=== PATIENT | male | born 1980 | race Native Hawaiian/Other Pacific Islander ===

== ENCOUNTER 2022-02-24 05:42 | Day surgery (SDC) | payer OTHER ==
[2022-02-20 16:09] VITALS: BMI 30.7
[~2022-02-24 05:42] MED LIST: ceFAZolin SODIUM 1 GM VIAL IVPB ONE
[2022-02-24] MEDS ORDERED: ROPIVACAINE HCL 0.5% 30ML VIAL ONE (14:16)
[2022-02-24] MEDS ORDERED: DEXAMETHASONE SOD PHOSPHATE 10 MG/1 ML VIAL ONE (14:16)
[2022-02-24] MEDS ORDERED: MIDAZOLAM HCL 2 MG/2 ML SINGLE DOSE VIAL ONE (14:17)
[2022-02-24] MEDS ORDERED: FENTANYL CITRATE/PF 50 MCG/ML VIAL ONE (14:34)
[2022-02-24] MEDS ORDERED: PROPOFOL 40 ML ONE (14:34)
[2022-02-24] MEDS ORDERED: ONDANSETRON 4 MG/2 ML VIAL ONE (14:49)
[2022-02-24] MEDS ORDERED: ceFAZolin SODIUM 1 GM VIAL IVPB ONE (14:50)
[2022-02-24] MEDS ORDERED: ONDANSETRON 4 MG/2 ML VIAL IVPUSH PRN (16:05)
[2022-02-24] MEDS ORDERED: oxyCODONE HCL 5 MG TABLET PO PRN (16:05)
[2022-02-24 17:15] VITALS: RESP 18
[2022-02-24 18:02] VITALS: BP 129/89; PULSE 79; TEMP 97.7
== END 2022-02-24 18:00 | disposition home or self-care (01) ==
LOC: JASU-SURG 05:42
PROVIDERS: ATTEND Orthopaedic Surgery
PROC: 0RBK4ZZ Excision of Left Shoulder Joint, Percutaneous Endoscopic Approach (ICD-10-PCS; principal; 2022-02-24 13:30)
PROC: 0PBB4ZZ Excision of Left Clavicle, Percutaneous Endoscopic Approach (ICD-10-PCS; 2022-02-24 13:30)
DX: M75.42 Impingement syndrome of left shoulder (principal); M19.012 Primary osteoarthritis, left shoulder
CPT/HCPCS: 93005; 93010; 94760; C1713; J1100

== ENCOUNTER 2023-12-17 14:46 | Inpatient (IN) | payer BC, OTHER ==
[2023-12-17 15:06] VITALS: BMI 29.7
[2023-12-17 15:51] LABS: HEMATOCRIT 24.7 % (35.4-49); HEMOGLOBIN 8.2 GM/dL (11.7-16.9); MCH 30.5 pg (25.7-33.7); MEAN CELL VOLUME 92.3 fl (80-96); MEAN PLT VOLUME 7.1 fl (7.5-11.1); PLATELET COUNT 314 10^3/uL (134-434); RBC 2.68 M/mm3 (4.00-5.60); RDW 12.9 % (11.9-15.9); WHITE BLOOD COUNT 13.8 K/mm3 (4.0-10.0)
[2023-12-17 16:11] LABS: INR 0.97 (0.83-1.09); PROTHROMBIN TIME (PATIENT) 11.2 SEC (9.7-13.0)
[2023-12-17 16:14] LABS: ACTIVATED PTT 26.6 SECONDS (25.2-36.5)
[2023-12-17 16:15] LABS: ALBUMIN 3.6 g/dl (3.4-5.0); BLOOD UREA NITROGEN 10.6 mg/dL (7-18)
[2023-12-17 16:16] LABS: BILIRUBIN,DIRECT 0.1 mg/dL (0.0-0.2)
[2023-12-17 16:17] LABS: IRON SERUM 47 ug/dL (50-175); TOTAL IRON BINDING CAPACITY 242 ug/dL (250-450)
[2023-12-17 16:18] LABS: CREATININE 0.9 mg/dL (0.55-1.3)
[2023-12-17 16:20] LABS: BILIRUBIN,TOTAL 0.4 mg/dL (0.2-1); TOT PROT 5.7 g/dl (6.4-8.2)
[2023-12-17 16:26] LABS: ANISOCYTOSIS 0; MACROCYTOSIS 0
[2023-12-17 16:29] LABS: PH,URINE 6.5 (5.0-8.0); URINE APPEARANCE CLEAR; URINE BILIRUBIN NEGATIVE (NEGATIVE); URINE COLOR YELLOW; URINE GLUCOSE (UA) NEGATIVE (NEGATIVE); URINE KETONE TRACE (NEGATIVE); URINE LEUK ESTERASE NEGATIVE (NEGATIVE); URINE NITRITE NEGATIVE (NEGATIVE); URINE PROTEIN NEGATIVE (NEGATIVE); URINE UROBILINOGEN 0.2 mg/dL (0.2-1.0)
[2023-12-17] MEDS: PANTOPRAZOLE SODIUM 160 MG in SODIUM CHLORIDE 250 ML IVPB SCH (19:57)
[2023-12-17] MEDS: ACETAMINOPHEN 1000 MG/100 ML BAG IVPB ONE (21:35)
[2023-12-18 04:50] LABS: HEMOGLOBIN 8.3 GM/dL (11.7-16.9); MCH 30.4 pg (25.7-33.7); MCHC 34.5 g/dl (32.0-35.9); MEAN CELL VOLUME 88.1 fl (80-96); MEAN PLT VOLUME 6.9 fl (7.5-11.1); PLATELET COUNT 239 10^3/uL (134-434); RBC 2.73 M/mm3 (4.00-5.60); RDW 16.1 % (11.9-15.9); WHITE BLOOD COUNT 6.2 K/mm3 (4.0-10.0)
[2023-12-18 10:10] LABS: BASO % 0.4 % (0-2.0); EOS % 1.9 % (0-4.5); HEMATOCRIT 26.1 % (35.4-49); HEMOGLOBIN 8.8 GM/dL (11.7-16.9); LYMPH % 27.2 % (8-40); MCH 30.1 pg (25.7-33.7); MCHC 33.8 g/dl (32.0-35.9); MEAN CELL VOLUME 89.1 fl (80-96); MONO % 6.5 % (3.8-10.2); PLATELET COUNT 257 10^3/uL (134-434); RBC 2.93 M/mm3 (4.00-5.60); RDW 16.7 % (11.9-15.9); WHITE BLOOD COUNT 6.2 K/mm3 (4.0-10.0)
[2023-12-18 10:17] LABS: INR 1.01 (0.83-1.09); PROTHROMBIN TIME (PATIENT) 11.4 SEC (9.7-13.0)
[2023-12-18 11:11] LABS: POTASSIUM 3.7 mmol/L (3.5-5.1)
[2023-12-18 11:13] LABS: ALBUMIN 3.1 g/dl (3.4-5.0); CALCIUM 8.1 mg/dL (8.5-10.1)
[2023-12-18 11:14] LABS: BLOOD UREA NITROGEN 9.8 mg/dL (7-18)
[2023-12-18 11:17] LABS: CREATININE 0.9 mg/dL (0.55-1.3); PHOSPHOROUS 3.2 mg/dL (2.5-4.9)
[2023-12-18 11:18] LABS: BILIRUBIN,TOTAL 0.6 mg/dL (0.2-1)
[2023-12-18] MEDS: D5-1/2NS+20 MEQ KCL - 20 MEQ/1,000 ML INFUS.BAG IV SCH (15:09)
[2023-12-18 16:31] LABS: HEMATOCRIT 26.9 % (35.4-49); HEMOGLOBIN 9.2 GM/dL (11.7-16.9); MCH 30.2 pg (25.7-33.7); MCHC 34.1 g/dl (32.0-35.9); MEAN CELL VOLUME 88.5 fl (80-96); PLATELET COUNT 277 10^3/uL (134-434); RBC 3.04 M/mm3 (4.00-5.60); WHITE BLOOD COUNT 6.6 K/mm3 (4.0-10.0)
[2023-12-18] MEDS: PANTOPRAZOLE 40 MG TABLET PO SCH (21:32)
[2023-12-19 05:45] LABS: BASO % 0.5 % (0-2.0); EOS % 2.1 % (0-4.5); HEMATOCRIT 23.3 % (35.4-49); HEMOGLOBIN 7.9 GM/dL (11.7-16.9); LYMPH % 19.2 % (8-40); MCH 30.4 pg (25.7-33.7); MEAN CELL VOLUME 89.3 fl (80-96); MEAN PLT VOLUME 7.2 fl (7.5-11.1); MONO % 6.3 % (3.8-10.2); NEUT % 71.9 % (42.8-82.8); PLATELET COUNT 291 10^3/uL (134-434); RBC 2.61 M/mm3 (4.00-5.60); RDW 16.4 % (11.9-15.9); WHITE BLOOD COUNT 8.1 K/mm3 (4.0-10.0)
[2023-12-19 05:53] LABS: POTASSIUM 4.3 mmol/L (3.5-5.1)
[2023-12-19 05:55] LABS: BLOOD UREA NITROGEN 16.7 mg/dL (7-18); CALCIUM 7.8 mg/dL (8.5-10.1)
[2023-12-19 06:00] LABS: BILIRUBIN,TOTAL 0.2 mg/dL (0.2-1)
[2023-12-19] MEDS: ACETAMINOPHEN 325 MG TABLET (FP) PO PRN (12:28)
[2023-12-19] MEDS: SODIUM CHLORIDE 1,000 ML IV SCH (19:34)
[2023-12-20 09:52] LABS: HEMATOCRIT 24.8 % (35.4-49); HEMOGLOBIN 8.8 GM/dL (11.7-16.9); MCH 31.5 pg (25.7-33.7); MCHC 35.4 g/dl (32.0-35.9); MEAN CELL VOLUME 89.1 fl (80-96); MEAN PLT VOLUME 6.9 fl (7.5-11.1); PLATELET COUNT 256 10^3/uL (134-434); RBC 2.78 M/mm3 (4.00-5.60); RDW 16.4 % (11.9-15.9)
[2023-12-20 10:25] LABS: POTASSIUM 3.9 mmol/L (3.5-5.1)
[2023-12-20 10:27] LABS: CALCIUM 7.7 mg/dL (8.5-10.1)
[2023-12-20 10:28] LABS: ALBUMIN 2.8 g/dl (3.4-5.0); BLOOD UREA NITROGEN 9.7 mg/dL (7-18)
[2023-12-20 10:31] LABS: CREATININE 0.8 mg/dL (0.55-1.3)
[2023-12-20 10:32] LABS: BILIRUBIN,TOTAL 0.2 mg/dL (0.2-1); TOT PROT 4.6 g/dl (6.4-8.2)
[2023-12-20] MEDS: BISACODYL 5 MG TABLET.DR (FP) PO ONE (14:42)
[2023-12-20] MEDS: POLYETHYLENE GLYCOL 3350 255 GM BTL PO ONE (18:10)
[2023-12-20] MEDS: SODIUM CHLORIDE 1,000 ML IV STA (23:05)
[2023-12-20] MEDS: PANTOPRAZOLE SODIUM 40 MG VIAL IVPUSH ONE (23:05)
[2023-12-20 23:27] LABS: BASO % 0.4 % (0-2.0); EOS % 3.6 % (0-4.5); HEMATOCRIT 23.8 % (35.4-49); HEMOGLOBIN 8.1 GM/dL (11.7-16.9); LYMPH % 26.9 % (8-40); MCH 30.8 pg (25.7-33.7); MCHC 34.2 g/dl (32.0-35.9); MEAN PLT VOLUME 6.6 fl (7.5-11.1); MONO % 6.1 % (3.8-10.2); PLATELET COUNT 306 10^3/uL (134-434); RBC 2.64 M/mm3 (4.00-5.60); WHITE BLOOD COUNT 8.5 K/mm3 (4.0-10.0)
[2023-12-20 23:37] LABS: POTASSIUM 3.4 mmol/L (3.5-5.1)
[2023-12-20 23:38] LABS: CALCIUM 7.7 mg/dL (8.5-10.1)
[2023-12-20 23:39] LABS: ALBUMIN 2.9 g/dl (3.4-5.0); BLOOD UREA NITROGEN 5.8 mg/dL (7-18)
[2023-12-20 23:42] LABS: CREATININE 0.9 mg/dL (0.55-1.3)
[2023-12-20 23:44] LABS: BILIRUBIN,TOTAL 0.3 mg/dL (0.2-1); TOT PROT 4.7 g/dl (6.4-8.2)
[2023-12-21] MEDS: SODIUM CHLORIDE 1,000 ML IV SCH ×2 (02:23→17:02)
[2023-12-21 07:06] LABS: HEMATOCRIT 22.1 % (35.4-49); HEMOGLOBIN 7.6 GM/dL (11.7-16.9); MCH 31.6 pg (25.7-33.7); MCHC 34.2 g/dl (32.0-35.9); MEAN CELL VOLUME 92.3 fl (80-96); MEAN PLT VOLUME 6.6 fl (7.5-11.1); PLATELET COUNT 233 10^3/uL (134-434); RDW 16.2 % (11.9-15.9); WHITE BLOOD COUNT 8.3 K/mm3 (4.0-10.0)
[2023-12-21] MEDS: PANTOPRAZOLE SODIUM 40 MG VIAL IVPUSH SCH ×2 (10:59→21:22)
[2023-12-21] MEDS ORDERED: ACETAMINOPHEN 325 MG TABLET (FP) PO PRN (12:36)
[2023-12-21 16:51] LABS: HEMATOCRIT 24.8 % (35.4-49); HEMOGLOBIN 8.5 GM/dL (11.7-16.9); MCH 30.9 pg (25.7-33.7); MCHC 34.2 g/dl (32.0-35.9); MEAN CELL VOLUME 90.5 fl (80-96); MEAN PLT VOLUME 6.6 fl (7.5-11.1); PLATELET COUNT 241 10^3/uL (134-434); RBC 2.73 M/mm3 (4.00-5.60); RDW 16.1 % (11.9-15.9); WHITE BLOOD COUNT 6.6 K/mm3 (4.0-10.0)
[2023-12-22 06:12] LABS: BASO % 0.7 % (0-2.0); EOS % 4.5 % (0-4.5); HEMATOCRIT 23.5 % (35.4-49); HEMOGLOBIN 8.1 GM/dL (11.7-16.9); MCHC 34.5 g/dl (32.0-35.9); MEAN CELL VOLUME 89.8 fl (80-96); MEAN PLT VOLUME 6.3 fl (7.5-11.1); MONO % 7.7 % (3.8-10.2); NEUT % 60.1 % (42.8-82.8); PLATELET COUNT 253 10^3/uL (134-434); RBC 2.61 M/mm3 (4.00-5.60); RDW 16.8 % (11.9-15.9); WHITE BLOOD COUNT 4.7 K/mm3 (4.0-10.0)
[2023-12-22 06:32] LABS: POTASSIUM 3.3 mmol/L (3.5-5.1)
[2023-12-22 06:33] LABS: BLOOD UREA NITROGEN 4.5 mg/dL (7-18); CALCIUM 7.6 mg/dL (8.5-10.1)
[2023-12-22 06:37] LABS: CREATININE 0.8 mg/dL (0.55-1.3)
[2023-12-22] MEDS: KCL 10 MEQ IVPB 10 MEQ/100 ML INFUS.BAG IVPB SCH (12:05)
[2023-12-22] MEDS: D5-1/2NS+20 MEQ KCL - 20 MEQ/1,000 ML INFUS.BAG IV SCH (12:07)
[2023-12-22 17:17] LABS: HEMATOCRIT 26.7 % (35.4-49); HEMOGLOBIN 9.2 GM/dL (11.7-16.9); MCH 30.9 pg (25.7-33.7); MCHC 34.4 g/dl (32.0-35.9); MEAN CELL VOLUME 89.7 fl (80-96); MEAN PLT VOLUME 6.3 fl (7.5-11.1); PLATELET COUNT 280 10^3/uL (134-434); RBC 2.97 M/mm3 (4.00-5.60); RDW 16.2 % (11.9-15.9); WHITE BLOOD COUNT 5.8 K/mm3 (4.0-10.0)
[2023-12-22] MEDS: POTASSIUM CHLORIDE ORAL LIQUID 20 MEQ/15 ML PO ONE (18:24)
[2023-12-23 08:54] LABS: BASO % 0.8 % (0-2.0); EOS % 4.9 % (0-4.5); HEMOGLOBIN 9.6 GM/dL (11.7-16.9); MCH 31.2 pg (25.7-33.7); MCHC 34.3 g/dl (32.0-35.9); MEAN CELL VOLUME 90.9 fl (80-96); MEAN PLT VOLUME 6.7 fl (7.5-11.1); MONO % 8.4 % (3.8-10.2); NEUT % 63.9 % (42.8-82.8); PLATELET COUNT 305 10^3/uL (134-434); RBC 3.08 M/mm3 (4.00-5.60); RDW 16.6 % (11.9-15.9); WHITE BLOOD COUNT 3.9 K/mm3 (4.0-10.0)
[2023-12-23 10:10] LABS: POTASSIUM 3.7 mmol/L (3.5-5.1)
[2023-12-23 10:15] LABS: ALBUMIN 2.9 g/dl (3.4-5.0); BLOOD UREA NITROGEN 3.1 mg/dL (7-18); CALCIUM 8.2 mg/dL (8.5-10.1)
[2023-12-23 10:18] LABS: CREATININE 0.8 mg/dL (0.55-1.3)
[2023-12-23 10:20] LABS: BILIRUBIN,TOTAL 0.8 mg/dL (0.2-1); TOT PROT 4.9 g/dl (6.4-8.2)
[2023-12-23] MEDS ORDERED: EPINEPHrine 1:10,000 (P-F SYR) 1 MG/10 ML DISP.SYRIN ONE ×2 (17:57→18:24)
[2023-12-23] MEDS ORDERED: ONDANSETRON 4 MG/2 ML VIAL IVPUSH PRN (18:32)
[2023-12-23] MEDS: LACTATED RINGERS SOLUTION 1,000 ML IV SCH ×2 (19:02→22:00)
[2023-12-23 20:53] LABS: BASO % 0.1 % (0-2.0); EOS % 1.6 % (0-4.5); HEMOGLOBIN 9.6 GM/dL (11.7-16.9); LYMPH % 12.4 % (8-40); MCH 30.1 pg (25.7-33.7); MCHC 33.1 g/dl (32.0-35.9); MEAN CELL VOLUME 91.1 fl (80-96); MEAN PLT VOLUME 6.3 fl (7.5-11.1); NEUT % 80.9 % (42.8-82.8); PLATELET COUNT 324 10^3/uL (134-434); RBC 3.19 M/mm3 (4.00-5.60); RDW 16.7 % (11.9-15.9); WHITE BLOOD COUNT 11.8 K/mm3 (4.0-10.0)
[2023-12-24 00:29] LABS: BASO % 0.1 % (0-2.0); EOS % 1.5 % (0-4.5); HEMATOCRIT 25.1 % (35.4-49); HEMOGLOBIN 8.7 GM/dL (11.7-16.9); LYMPH % 8.4 % (8-40); MCH 31.2 pg (25.7-33.7); MCHC 34.5 g/dl (32.0-35.9); MEAN CELL VOLUME 90.3 fl (80-96); MEAN PLT VOLUME 6.2 fl (7.5-11.1); MONO % 4.2 % (3.8-10.2); NEUT % 85.8 % (42.8-82.8); PLATELET COUNT 299 10^3/uL (134-434); RBC 2.78 M/mm3 (4.00-5.60); RDW 16.5 % (11.9-15.9); WHITE BLOOD COUNT 7.9 K/mm3 (4.0-10.0)
[2023-12-24 07:03] LABS: HEMATOCRIT 25.6 % (35.4-49); HEMOGLOBIN 8.5 GM/dL (11.7-16.9); MCH 30.9 pg (25.7-33.7); MCHC 33.4 g/dl (32.0-35.9); MEAN CELL VOLUME 92.7 fl (80-96); MEAN PLT VOLUME 6.7 fl (7.5-11.1); PLATELET COUNT 299 10^3/uL (134-434); RBC 2.76 M/mm3 (4.00-5.60); RDW 16.7 % (11.9-15.9); WHITE BLOOD COUNT 7.5 K/mm3 (4.0-10.0)
[2023-12-24 17:43] LABS: HEMATOCRIT 27.1 % (35.4-49); MCH 30.8 pg (25.7-33.7); MCHC 33.3 g/dl (32.0-35.9); MEAN CELL VOLUME 92.3 fl (80-96); MEAN PLT VOLUME 6.2 fl (7.5-11.1); PLATELET COUNT 326 10^3/uL (134-434); RBC 2.93 M/mm3 (4.00-5.60); RDW 17.6 % (11.9-15.9); WHITE BLOOD COUNT 7.3 K/mm3 (4.0-10.0)
[2023-12-24 18:18] VITALS: BP 118/68; PULSE 55; RESP 18; TEMP 99.1
== END 2023-12-24 20:54 | disposition home or self-care (01) | DRG 378 ==
LOC: JER 14:46 → UNDOADMOB 17:23 → INTOOBSV 17:23 → JERBED 17:23 → J8W 18:31 → JERBED 18:31 → J8W 12-18 12:46 → OBSVTOIN 12-20 14:58 → JERBED 12-21 01:11 → J4W 12-21 01:12
PROVIDERS: ADMIT Internal Medicine; ATTEND Internal Medicine
PROC: 30233N1 Transfusion of Nonautologous Red Blood Cells into Peripheral Vein, Percutaneous Approach (ICD-10-PCS; 2023-12-17)
PROC: 0DB68ZX Excision of Stomach, Via Natural or Artificial Opening Endoscopic, Diagnostic (ICD-10-PCS; 2023-12-21)
PROC: 0DBM8ZX Excision of Descending Colon, Via Natural or Artificial Opening Endoscopic, Diagnostic (ICD-10-PCS; 2023-12-21)
PROC: 0W3P8ZZ Control Bleeding in Gastrointestinal Tract, Via Natural or Artificial Opening Endoscopic (ICD-10-PCS; principal; 2023-12-23 15:45)
DX: K92.2 Gastrointestinal hemorrhage, unspecified (principal); D62 Acute posthemorrhagic anemia; R55 Syncope and collapse; R01.1 Cardiac murmur, unspecified; K29.70 Gastritis, unspecified, without bleeding; D12.6 Benign neoplasm of colon, unspecified
CPT/HCPCS: 0241U-QW; 36415; 36430; 37244; 70450-TC; 74174-TC; 74177-TC; 75774-TC-FY; 80048; 80053; 81003; 82248; 82272; 82728; 82962; 83540; 83550; 83615; 83735; 84100; 84466; 84484; 85025; 85027; 85610; 85730; 86850; 86900; 86901; 86922; 87086; 87635; 88305-TC; 88342-TC; 93005; 93010; 93306-TC; 99285-25; G0378; J0131; P9038; P9058; Q9967